=== PATIENT | female | born 1945 | race Caucasian/White ===

== ENCOUNTER 2018-01-03 20:27 | Emergency (ER) | payer MEDICARE ==
[~2018-01-03] VITALS: Ht 160 cm; Wt 68.0 kg
[2018-01-03 20:38] VITALS: BP 99/68; PULSE 97; RESP 18; TEMP 97.8; O2SAT 99
[2018-01-03] MEDS ORDERED: VITACAP7 PO (20:38)
[2018-01-03] MEDS ORDERED: MAGN400T2 PO (20:38)
[2018-01-03] MEDS ORDERED: SPIRCAP INH (20:38)
[2018-01-03] MEDS ORDERED: cholesterol med (20:38)
[2018-01-03] MEDS ORDERED: CAL-TAB4 PO (20:38)
[2018-01-03] MEDS ORDERED: ALBUAER3 INH (20:38)
[2018-01-03] MEDS ORDERED: LEVO.075 PO (20:38)
[2018-01-03] MEDS ORDERED: ASPI-516 CHEW (20:38)
[2018-01-03 20:52] VITALS: O2SAT 99
--- NOTE | 2018-01-03 20:58 | PD ---
HPI Chief Complaint: Syncope/Near-Syncope Time Seen by Provider: 20:41 Travel History International Travel<30 days: No Contact w/Intl Traveler<30days: No Traveled to known affect area: No History of Present Illness HPI The patient is a 72-year-old female the had a syncopal episode today when she was sitting at the table. She got nauseated and vomited and then fainted briefly. There was no seizure activity. She tried to get her head up and then fainted once more the table. She does have a slight headache since. She has been out in the sun all day and has a sunburn. She has not been drinking liquids today. She does smoke 2 pack a day and does have her right lung removed for cancer. PFSH Past Medical History Arthritis: Yes Cancer: Yes (thyroid) High Cholesterol: Yes Tetanus Vaccination: < 5 Years Influenza Vaccination: Yes Past Surgical History Mastectomy: Yes (right) Other Surgery: Yes (lobeectomy RLL, part of thyroid removed) Social History Alcohol Use: No Tobacco Use: Yes (2 PPD) Substance Use: No Allergies-Medications (Allergen,Severity, Reaction): Coded Allergies: codeine (Verified Allergy, Intermediate, Nausea/Vomiting, 01/03/18) Reported Meds & Prescriptions Reported Meds & Active Scripts Active Reported [cholesterol med] B Complex (B-Complex Vitamins) 1 Cap 1 Cap PO DAILY Wallace-Citrate Plus Vitamin D (Calcium Citrate-Vitamin D) 250-100 Mg-Unit Tab 1 Tab PO BID Magnesium Oxide 400 Mg Tab 400 Mg PO DIRECTED Aspirin 81 Mg Chew 81 Mg CHEW DAILY Synthroid (Levothyroxine Sodium) 75 Mcg Tab 75 Mcg PO DAILY Spiriva Handihaler (Tiotropium Inh) 18 Mcg Cap 18 Mcg INH DAILY 1 capsule = 18 mcg Proair Hfa 8.5 GM Inh (Albuterol Sulfate) 90 Mcg/Act Aer 2 Puff INH Q6H PRN 108 mcg/actuation Review of Systems Except as stated in HPI: all other systems reviewed are Neg Physical Exam Narrative GENERAL: The patient is alert, oriented 3, moderately dehydrated appearing and in no apparent distress except for minimal headache. Her vital signs show pulse of 97 with blood pressure 99/68. The rest of the vital signs are normal. SKIN: Focused skin assessment warm/dry. HEAD: Atraumatic. Normocephalic. EYES: Pupils equal and round. No scleral icterus. No injection or drainage. ENT: No nasal bleeding or discharge. Mucous membranes pink and moist. NECK: Trachea midline. No JVD. CARDIOVASCULAR: Regular rate and rhythm. No murmur appreciated. RESPIRATORY: No accessory muscle use. Decreased breath sounds as well as rhonchi are heard on the right base. Breath sounds equal bilaterally. GASTROINTESTINAL: Abdomen soft, non-tender, nondistended. Hepatic and splenic margins not palpable. No guarding or rebound is present. MUSCULOSKELETAL: No obvious deformities. No clubbing. No cyanosis. No edema. NEUROLOGICAL: Awake and alert. No obvious cranial nerve deficits. Motor grossly within normal limits. Normal speech. PSYCHIATRIC: Appropriate mood and affect; insight and judgment normal. Data Data Last Documented VS Vital Signs Date Time Temp Pulse Resp B/P (MAP) Pulse Ox O2 Delivery O2 Flow Rate FiO2 01/03/18 22:51 98 18 122/60 (80) 98 01/03/18 22:06 Room Air 01/03/18 20:38 97.8 Orders Orders Complete Blood Count With Diff (01/03/18 20:50) Comprehensive Metabolic Panel (01/03/18 20:50) Magnesium (Mg) (01/03/18 20:50) Troponin I (01/03/18 20:50) Ecg Monitoring (01/03/18 20:50) Iv Access Insert/Monitor (01/03/18 20:50) Oximetry (01/03/18 20:50) Sodium Chloride 0.9% Flush (Ns Flush) (01/03/18 21:00) Orthostatic Vital Signs (01/03/18 20:50) Sodium Chlor 0.9% 1000 Ml Inj (Ns 1000 M (01/03/18 21:00) Electrocardiogram (01/03/18 20:52) Urinalysis - C+S If Indicated (01/03/18 22:27) Ed Discharge Order (01/03/18 22:48) Labs Laboratory Tests Test 01/03/18 21:10 01/03/18 22:30 White Blood Count 20.0 TH/MM3 Red Blood Count 4.29 MIL/MM3 Hemoglobin 12.1 GM/DL Hematocrit 36.0 % Mean Corpuscular Volume 83.9 FL Mean Corpuscular Hemoglobin 28.1 PG Mean Corpuscular Hemoglobin Concent 33.5 % Red Cell Distribution Width 14.9 % Platelet Count 267 TH/MM3 Mean Platelet Volume 9.7 FL Neutrophils (%) (Auto) 80.9 % Lymphocytes (%) (Auto) 10.4 % Monocytes (%) (Auto) 4.4 % Eosinophils (%) (Auto) 1.4 % Basophils (%) (Auto) 2.9 % Neutrophils # (Auto) 16.1 TH/MM3 Lymphocytes # (Auto) 2.1 TH/MM3 Monocytes # (Auto) 0.9 TH/MM3 Eosinophils # (Auto) 0.3 TH/MM3 Basophils # (Auto) 0.6 TH/MM3 CBC Comment AUTO DIFF Differential Comment AUTO DIFF CONFIRMED Blood Urea Nitrogen 8 MG/DL Creatinine 0.81 MG/DL Random Glucose 136 MG/DL Total Protein 7.0 GM/DL Albumin 3.4 GM/DL Calcium Level 8.5 MG/DL Magnesium Level 2.0 MG/DL Alkaline Phosphatase 151 U/L Aspartate Amino Transf (AST/SGOT) 12 U/L Alanine Aminotransferase (ALT/SGPT) 13 U/L Total Bilirubin 0.3 MG/DL Sodium Level 139 MEQ/L Potassium Level 3.7 MEQ/L Chloride Level 109 MEQ/L Carbon Dioxide Level 23.0 MEQ/L Anion Gap 7 MEQ/L Estimat Glomerular Filtration Rate 70 ML/MIN Troponin I LESS THAN 0.02 NG/ML MDM Medical Decision Making Medical Screen Exam Complete: Yes Emergency Medical Condition: Yes Medical Record Reviewed: Yes Interpretation(s) The CBC shows a white count of 20,000 but is otherwise unremarkable. The complete metabolic profile is normal and the troponin I is normal. Differential Diagnosis postural hypotension, dehydration, viral syndrome, pneumonia, electrolyte disorder, cardiac syncope-highly unlikely, vasovagal syncope Narrative Course It is now 1053 and the patient is walking around and wanting to go home. She feels much better and her pressure has normalized. She is received about 3 L of saline and has urinated. Orthostatics were done after the patient was rehydrated and are normal. The patient had a low blood pressure when she came in and borderline tachycardia. The dehydration has been resolved and the patient feels much better. Diagnosis Primary Impression: Postural hypotension Additional Impression: Dehydration Additional Instructions: Continue to hydrate yourself. It appears that the dehydration contributed to the low blood pressure, particularly when you sit up or stand up. It appears that you do not get enough blood flow to your brain and this is what caused you to faint. Disposition: 01 DISCHARGE HOME Condition: Stable Orlando Gongora MD Jan 03, 2018 20:58
[2018-01-03 20:59] VITALS: BP_SYST 103; BP_SYST 119; BP_SYST 121; BP_DIAS 56; BP_DIAS 60; BP_DIAS 65
[2018-01-03] MEDS: SODIUM CHLOR 0.9% 1000 ML INJ 1,000 ML IV SCH ×2 (21:00→21:30)
[2018-01-03] MEDS ORDERED: SODIUM CHLORIDE 0.9% FLUSH 10 ML FLUSH IVF PRN (21:00)
[2018-01-03 21:46] LABS: AUTOMATED NEUTROPHIL # 16.1 TH/MM3 (1.8-7.7); BASOPHIL # 0.6 TH/MM3 (0-0.2); BASOPHIL % 2.9 % (0.0-2.0); CHLORIDE 109 MEQ/L (98-107); EOSINOPHIL # 0.3 TH/MM3 (0-0.4); EOSINOPHIL % 1.4 % (0.0-4.0); HEMOGLOBIN 12.1 GM/DL (11.6-15.3); LYMPH % 10.4 % (9.0-44.0); LYMPHOCYTE # 2.1 TH/MM3 (1.0-4.8); MEAN CELL VOLUME 83.9 FL (80.0-100.0); MEAN CORPUSCULAR HEMOGLOBIN 28.1 PG (27.0-34.0); MEAN CORPUSCULAR HGB CONC 33.5 % (32.0-36.0); MEAN PLATELET VOLUME 9.7 FL (7.0-11.0); MONO % 4.4 % (0.0-8.0); MONOCYTE # 0.9 TH/MM3 (0-0.9); NEUT % 80.9 % (16.0-70.0); PLATELET COUNT 267 TH/MM3 (150-450); RED BLOOD COUNT 4.29 MIL/MM3 (4.00-5.30); RED CELL DISTRIBUTION WIDTH 14.9 % (11.6-17.2); SODIUM (NA) 139 MEQ/L (136-145)
[2018-01-03 21:50] LABS: ALBUMIN 3.4 GM/DL (3.4-5.0); BLOOD UREA NITROGEN 8 MG/DL (7-18); CALCIUM 8.5 MG/DL (8.5-10.1); GLUCOSE,RANDOM 136 MG/DL (74-106)
[2018-01-03 21:53] LABS: ALT (GPT) 13 U/L (10-53); AST (GOT) 12 U/L (15-37); CREATININE 0.81 MG/DL (0.50-1.00); GLOMERULAR FILTRATION RATE 70 ML/MIN (>89)
[2018-01-03 21:55] LABS: TOTAL BILIRUBIN ADULT 0.3 MG/DL (0.2-1.0)
[2018-01-03 21:56] LABS: ALKALINE PHOSPHATASE 151 U/L (45-117)
[2018-01-03 21:58] LABS: TROPONIN I LESS THAN 0.02 NG/ML (0.02-0.05)
[2018-01-03 22:06] VITALS: BP 125/55; PULSE 98; RESP 18; O2SAT 98
[2018-01-03 22:37] LABS: BILIRUBIN, URINE NEG (NEG); BLOOD, URINE NEG (NEG); GLUCOSE,URINE NEG (NEG); KETONE, URINE NEG (NEG); NITRITE,URINE NEG (NEG); URINE COLOR YELLOW (YELLW/STRAW); URINE LEUKOCYTE ESTERASE TRACE (NEG)
[2018-01-03 22:51] VITALS: BP 122/60
[2018-01-03 23:40] LABS: BACTERIA, URINE OCC /hpf; RBC, URINE 0-2 /hpf (0-3)
--- NOTE | 2018-01-04 13:58 | EKG ---
Date Performed: 01/03/2018 Time Performed: 21:24:13 PTAGE: 72 years EKG: SINUS TACHYCARDIA POOR R WAVE PROGRESSION, MOST LIKELY DUE TO LEAD PLACEMENT, CANNOT EXCLUD E ANTEROSEPTAL NV ABNORMAL ECG NO PREVIOUS TRACING DOCTOR: Noe Uriarte Interpretating Date/Time 01/04/2018 13:56:49
== END 2018-01-03 23:04 | disposition home or self-care (01) ==
LOC: PHED 20:27
DX: I95.1 Orthostatic hypotension (principal); E86.0 Dehydration; R11.2 Nausea with vomiting, unspecified; R55 Syncope and collapse; R51 Headache; R00.0 Tachycardia, unspecified; R94.31 Abnormal electrocardiogram [ECG] [EKG]; M19.90 Unspecified osteoarthritis, unspecified site; F17.200 Nicotine dependence, unspecified, uncomplicated
CPT/HCPCS: 80053; 81001; 83735; 84484; 85025; 93005; 96360; 99284; J7030